=== PATIENT | male | born 1965 | race Caucasian/White ===

== ENCOUNTER 2018-11-28 02:57 | Emergency (ER) | payer MEDICAID ==
[~2018-11-28] VITALS: Ht 175.3 cm; Wt 90.7 kg
[2018-11-28 03:01] VITALS: BP_SYST 115
--- NOTE | 2018-11-28 03:11 | NUR ---
Placed in room 5 . Placed on principal java software engineer, blood pressure machine and pulse oximeter. To gown for exam. Side rails up. Report given to TORIBIO FUCHS.
--- NOTE | 2018-11-28 03:11 | NUR ---
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 Pt states pain is worse with breathing. Pt non-diaphoretic and denies N/V. Pt states that he was Dx with Pneumonia 2 month ago, but has since cleared. Pt states that he has a hx of Pneumonia 8 times in his life.
[2018-11-28] MEDS ORDERED: NACL 0.9% 1,000 ML IV ONE (03:19)
[2018-11-28] MEDS ORDERED: MORPHINE 4 MG/ML INJ. SYRINGE IVP ONE ×2 (03:30→10:45)
[2018-11-28] MEDS ORDERED: ASPIRIN 81 MG TAB.CHEW PO ONE (03:30)
[2018-11-28] MEDS ORDERED: ONDANSETRON HCL 4 MG/2 ML VIAL IVP ONE (03:30)
--- NOTE | 2018-11-28 03:30 | NUR ---
Dr. Qiu at bedside to assess pt.
--- NOTE | 2018-11-28 04:00 | NUR ---
# 22 gauge angiocath placed to LHA. Use of asceptic technique. Opsite placed over site. Blood return noted. Blood for lab drawn from site. Flushed with 10 cc of normal saline. No evidence of infiltration noted. Patient tolerated well.
[2018-11-28 04:27] LABS: INR 1.1 (0.80-1.20); PROTHROMBIN TIME 11.3 SECS (9.5-12.5)
[2018-11-28 04:31] LABS: HEMATOCRIT 35.3 % (36-54); MEAN CORPUSCULAR HEMOGLOBIN 31 pg (27-31); MEAN CORPUSCULAR HGB CONC 34 % (32-36); MEAN CORPUSCULAR VOLUME 91 fL (79.0-98.0); RED CELL DISTRIBUTION WIDTH 12.8 % (9.0-15.0); WHITE BLOOD COUNT (AUTO) 11.1 K/uL (4.8-10.8)
[2018-11-28 04:32] LABS: BASOPHILS # (AUTO) 0.1 K/uL (0.0-0.2); EOSINOPHILS # (AUTO) 2.3 K/uL (0.0-0.4); EOSINOPHILS % (AUTO) 20.8 % (0.0-4.0); LYMPHOCYTES # (AUTO) 1.9 K/uL (1.0-5.5); LYMPHOCYTES % (AUTO) 16.8 % (20.5-51.5); MONOCYTES # (AUTO) 0.6 K/uL (0.0-1.0); MONOCYTES % (AUTO) 5.5 % (1.7-9.3); NEUTROPHILS # (AUTO) 6.2 K/uL (1.8-7.7); NEUTROPHILS % (AUTO) 55.9 % (40.0-70.0); PLATELET COUNT (AUTO) 75 K/uL (130-430)
[2018-11-28 05:07] LABS: CALCIUM 8.2 mg/dL (8.4-11.0); CREATININE 0.78 mg/dL (0.55-1.30); POTASSIUM 3.9 mmol/L (3.5-5.1)
[2018-11-28 05:14] LABS: ALBUMIN 2.7 g/dL (3.4-4.8); TOTAL BILIRUBIN 0.2 mg/dL (0.0-1.0)
--- NOTE | 2018-11-28 05:55 | NUR ---
Dr. Qiu at bedside to update pt on POC.
--- NOTE | 2018-11-28 06:12 | NUR ---
Spoke with Dacia, case maker with [facility] regarding pt admit. Dacia states that physician will call back.
--- NOTE | 2018-11-28 06:54 | NUR ---
Dr. Heath from [facility] on phone with Dr. Qiu.
--- NOTE | 2018-11-28 07:02 | NUR ---
Pt to be transferred to [facility]. Dr. Qiu at pt.s bedside to update on POC.
--- NOTE | 2018-11-28 07:15 | NUR ---
Pt report given to JEF Yu.
--- NOTE | 2018-11-28 07:34 | NUR ---
Patient in bed, indicates wants to get some sleep. no s/s of acute distress noted. will continue to monitor.
--- NOTE | 2018-11-28 08:09 | NUR ---
Spoke with Martha with [facility] transfer center. [facility] will be accepting, room 50. Number .
--- NOTE | 2018-11-28 10:17 | NUR ---
Called Paz Talbot at Number , and gave report to JEF Mcdaniels. patient going to room 50. Gave all information including medications given in ED, per Enedelia keep IV in do not remove. All questions answered.
--- NOTE | 2018-11-28 10:40 | NUR ---
Dr. singh at bedside to speak with patient.
[2018-11-28] MEDS ORDERED: PIPERACILLIN/TAZO 3.375 GM in NS 50 ML IV ONE (10:45)
--- NOTE | 2018-11-28 10:45 | NUR ---
new orders given for patient, transfer delay so patient can receive antibiotic for diagnosis of pneumonia.
[2018-11-28] MEDS ORDERED: PIPERACILLIN/TAZOBACTAM 3.375 GM/VIAL (ZOSYN) IV ONE (10:56)
[2018-11-28 11:30] LABS: BILIRUBIN,URINE NEGATIVE (NEGATIVE); BLOOD, URINE NEGATIVE (NEGATIVE); CLARITY/URINE SL HAZY (CLEAR); COLOR,URINE YELLOW (YELLOW); GLUCOSE,URINE NEGATIVE (NEGATIVE); KETONES,URINE NEGATIVE (NEGATIVE); LEUKOCYTE ESTERASE ,URINE NEGATIVE (NEGATIVE); NITRITE, URINE NEGATIVE (NEGATIVE); PH,URINE 6.5 (5.0-8.0); PROTEIN URINE NEGATIVE (NEGATIVE); UROBILINOGEN,URINE 0.2 (0.2-1.0)
--- NOTE | 2018-11-28 11:48 | NUR ---
Called [facility] to speak with JEF Mcdaniels to give update on patient having pneumonia and receiving Zosyn. JEF Mcdaniels acknowledged and verbalized understanding.
[2018-11-28 12:30] VITALS: BP_SYST 111
--- NOTE | 2018-11-28 12:30 | NUR ---
Patient to be transferred to [facility]. Is being transferred due to higher level of care. Receiving facility has accepting physician and available space. ER physician has signed transfer form. Patient or responsible libertarian has agreed to transfer and signed form. Patient belongings inventoried and will be sent with patient. Copy of nursing notes, lab reports, EKG, Physicians Orders and X-rays to be sent with patient. Report called to Enedelia at receiving facility. ETA is now.
== END 2018-11-28 12:30 | disposition short-term general hospital (02) ==
LOC: SED 02:57
DX: R07.89 Other chest pain (principal); R06.02 Shortness of breath; D69.6 Thrombocytopenia, unspecified; J45.909 Unspecified asthma, uncomplicated; Z90.89 Acquired absence of other organs; Z87.891 Personal history of nicotine dependence
CPT/HCPCS: 36415; 71045; 80053; 81003; 82150; 82550; 83605; 83690; 83880; 84484; 85025; 85379; 85610; 85730; 87040; 93005; 96365; 96375; 96376; 99285; J2270; J2405; J2543; J7030

== ENCOUNTER 2020-04-07 00:50 | Emergency (ER) | payer MEDICAID ==
[~2020-04-07] VITALS: Ht 172.7 cm; Wt 90.7 kg
[2020-04-07 00:52] VITALS: BP_SYST 152
--- NOTE | 2020-04-07 00:53 | NUR ---
Patient came from home. C/O Short of breath x today. Patient states " had shortness of breath and right chest pain x 3 hours ago." Hx Asthma and COPD. A/O,X4, shortness of breath , oxygen sat 97 % RA, right chest pain, place patient on rn cardiac rehab.
--- NOTE | 2020-04-07 00:53 | NUR ---
Patient to ER bed 1 to gown for evaluation. Side rails up.
--- NOTE | 2020-04-07 00:53 | NUR ---
ER at bedside examining patient.
[2020-04-07] MEDS ORDERED: ASPIRIN 81 MG TAB.CHEW PO ONE (01:15)
--- NOTE | 2020-04-07 01:33 | NUR ---
Blood for labwork drawn from furniture sales consultant. Patient tolerated well.
[2020-04-07 01:59] LABS: BASOPHILS # (AUTO) 0.1 K/uL (0.0-0.2); BASOPHILS % (AUTO) 0.6 % (0.0-2.0); EOSINOPHILS # (AUTO) 0.7 K/uL (0.0-0.4); EOSINOPHILS % (AUTO) 5.8 % (0.0-4.0); HEMOGLOBIN 11.8 g/dL (14.0-18.0); LYMPHOCYTES # (AUTO) 1.4 K/uL (1.0-5.5); LYMPHOCYTES % (AUTO) 10.9 % (20.5-51.5); MEAN CORPUSCULAR HEMOGLOBIN 31 pg (27-31); MEAN CORPUSCULAR HGB CONC 34 % (32-36); MEAN CORPUSCULAR VOLUME 91 fL (79.0-98.0); MONOCYTES # (AUTO) 0.9 K/uL (0.0-1.0); MONOCYTES % (AUTO) 7.2 % (1.7-9.3); NEUTROPHILS # (AUTO) 9.5 K/uL (1.8-7.7); NEUTROPHILS % (AUTO) 75.5 % (40.0-70.0); PLATELET COUNT (AUTO) 390 K/uL (130-430); RED BLOOD CELL COUNT(AUTO) 3.84 MIL/uL (4.2-6.2); RED CELL DISTRIBUTION WIDTH 12.9 % (9.0-15.0); WHITE BLOOD COUNT (AUTO) 12.6 K/uL (4.8-10.8)
--- NOTE | 2020-04-07 02:09 | NUR ---
Patient states "need med for pain, pain rate 06/14." , notified.
[2020-04-07 02:10] LABS: CREATININE 1.93 mg/dL (0.55-1.30); POTASSIUM 3.7 mmol/L (3.5-5.1)
[2020-04-07 02:12] LABS: INR 1.3 (0.80-1.20); PROTHROMBIN TIME 12.6 SECS (9.5-12.5)
[2020-04-07] MEDS ORDERED: KETOROLAC TROMETHAMINE 60 MG/2 ML VIAL IM ONE (02:15)
[2020-04-07] MEDS ORDERED: KETOROLAC TROMETHAMINE 30 MG VIAL IM ONE (02:15)
[2020-04-07 02:18] LABS: ALBUMIN 3.3 g/dL (3.4-4.8); TOTAL BILIRUBIN 0.3 mg/dL (0.0-1.0)
[2020-04-07] MEDS ORDERED: ALBMDI INH (03:36)
[2020-04-07] MEDS ORDERED: FLO44 INH (03:36)
[2020-04-07] MEDS ORDERED: LOSA50TA28 PO (03:36)
[2020-04-07] MEDS ORDERED: OMEP40CA33 PO (03:36)
--- NOTE | 2020-04-07 03:37 | NUR ---
Medication reconciliation completed with information provided by patient. Any prior medication reconciliation on file was reviewed and corrected.
--- NOTE | 2020-04-07 03:40 | NUR ---
# 24 gauge angiocath placed to left wrist by JEF Salas. Use of asceptic technique. Opsite placed over site. Blood return noted. Blood for lab drawn from site. Flushed with 10 cc of normal saline. No evidence of infiltration noted. Patient tolerated well.
[2020-04-07 05:14] LABS: BILIRUBIN,URINE NEGATIVE (NEGATIVE); BLOOD, URINE NEGATIVE (NEGATIVE); CLARITY/URINE CLEAR (CLEAR); COLOR,URINE YELLOW (YELLOW); GLUCOSE,URINE NEGATIVE (NEGATIVE); KETONES,URINE NEGATIVE (NEGATIVE); LEUKOCYTE ESTERASE ,URINE NEGATIVE (NEGATIVE); NITRITE, URINE NEGATIVE (NEGATIVE); PH,URINE 5.5 (5.0-8.0); PROTEIN URINE TRACE (NEGATIVE); UROBILINOGEN,URINE 0.2 (0.2-1.0)
[2020-04-07 05:30] LABS: URINE SULFO SALICYLIC ACID TRACE (NEGATIVE)
--- NOTE | 2020-04-07 06:19 | NUR ---
TRANSFER INFO [place] ROOM: 321B ACCEPTING: DR. SANDERS REPORT: [phone] [facility] ETA 0720 SPOKE TO ABBIE
[2020-04-07 06:44] VITALS: BP_SYST 129
--- NOTE | 2020-04-07 06:44 | NUR ---
Patient does not wish to proceed with medical care recommended by . Patient given information related to possible complications, up to and including , which could occur as a result of leaving hospital at this time. Patient verbalizes understanding of risks involved leaving against medical advice. Patient has signed AMA form.
--- NOTE | 2020-04-07 06:44 | NUR ---
Patient signed AMA.
== END 2020-04-07 06:44 | disposition left against medical advice (07) ==
LOC: SED 00:50
DX: A06 Amebiasis (principal); A31.9 Mycobacterial infection, unspecified; R91.8 Other nonspecific abnormal finding of lung field; J45.909 Unspecified asthma, uncomplicated; Z79.899 Other long term (current) drug therapy
CPT/HCPCS: 36415; 71045; 71250; 80053; 81003; 82550; 83880; 84484; 85025; 85379; 85610; 93005; 96372; 99285; J1885

== ENCOUNTER 2021-01-31 12:33 | Emergency (ER) | payer MEDICAID, SELFPAY ==
[~2021-01-31] VITALS: Ht 175.3 cm; Wt 90.7 kg
[2021-01-31 12:33] VITALS: BP_SYST 142
[~2021-01-31 12:33] MED LIST: ALBMDI INH; FLO44 INH; LOSA50TA28 PO; OMEP40CA13 PO
--- NOTE | 2021-01-31 12:34 | NUR ---
BROUGHT IMMEDIATELY BACK TO BED #7 AND TRIAGED. REPORT GIVEN TO WILLIAM
--- NOTE | 2021-01-31 12:48 | NUR ---
ER at bedside examining patient.
--- NOTE | 2021-01-31 13:00 | NUR ---
pt arrives from home w/ c/o blood in the sputum. Pt reports being dx w/ pna 2 weeks ago and is currently taking a a-pack. Pt also reports feeling SOB. O2 upon arrival was 92%. O2 l placed via NC. property assessment monitor placed.
[2021-01-31 13:27] LABS: BASOPHILS # (AUTO) 0.2 K/uL (0.0-0.2); BASOPHILS % (AUTO) 1.5 % (0.0-2.0); EOSINOPHILS # (AUTO) 3.2 K/uL (0.0-0.4); EOSINOPHILS % (AUTO) 28.2 % (0.0-4.0); HEMATOCRIT 40.5 % (36-54); HEMOGLOBIN 13.7 g/dL (14.0-18.0); LYMPHOCYTES # (AUTO) 1.7 K/uL (1.0-5.5); LYMPHOCYTES % (AUTO) 14.8 % (20.5-51.5); MEAN CORPUSCULAR HEMOGLOBIN 31 pg (27-31); MEAN CORPUSCULAR HGB CONC 34 % (32-36); MEAN CORPUSCULAR VOLUME 90 fL (79.0-98.0); MONOCYTES # (AUTO) 0.6 K/uL (0.0-1.0); NEUTROPHILS # (AUTO) 5.8 K/uL (1.8-7.7); NEUTROPHILS % (AUTO) 50.5 % (40.0-70.0); PLATELET COUNT (AUTO) 300 K/uL (130-430); RED BLOOD CELL COUNT(AUTO) 4.48 MIL/uL (4.2-6.2); RED CELL DISTRIBUTION WIDTH 12.8 % (9.0-15.0); WHITE BLOOD COUNT (AUTO) 11.5 K/uL (4.8-10.8)
[2021-01-31 13:37] LABS: CALCIUM 8.9 mg/dL (8.4-11.0); CREATININE 0.95 mg/dL (0.55-1.30); POTASSIUM 4.2 mmol/L (3.5-5.1)
[2021-01-31 13:42] LABS: ALBUMIN 3.4 g/dL (3.4-4.8); TOTAL BILIRUBIN 0.3 mg/dL (0.0-1.0)
--- NOTE | 2021-01-31 13:56 | NUR ---
Notified ED Admitting, regarding pt status pending admission/ trasnfer. Per Dr. Carey, pt is stable for transfer. Will notify insurance agents supervisor.
--- NOTE | 2021-01-31 14:38 | NUR ---
# 24 gauge angiocath placed to left wrist . Use of asceptic technique. Opsite placed over site. Blood return noted. Blood for lab drawn from site. Flushed with 10 cc of normal saline. No evidence of infiltration noted. Patient tolerated well.
[2021-01-31] MEDS: cefTRIAXone 1 GM IVPB PREMIX 50 ML IV ONE (14:44)
[2021-01-31] MEDS: ALBUTEROL SULFATE 0.083% 2.5 MG/3 ML VIAL.NEB INH ONE (15:04)
--- NOTE | 2021-01-31 15:04 | NUR ---
rt at the bedside.
[2021-01-31] MEDS: IPRATROPIUM BROM 0.5 MG/2.5 ML VIAL.NEB (ATROVENT) INH ONE (15:05)
--- NOTE | 2021-01-31 16:00 | NUR ---
rapid covid swab collected and sent to the lab
--- NOTE | 2021-01-31 16:20 | NUR ---
Per Dr. Dao, page pt insurance commissioner one more time.
--- NOTE | 2021-01-31 16:27 | NUR ---
Spoke to Evi, [facility] continuous pillowcase cutter, called back regarding pt status. Reqeusted fax of facesheet and clinicals. Dr. Rizzo will call back to speak to Dr. Dao regarding pt status. fax: [phone]
--- NOTE | 2021-01-31 16:57 | NUR ---
[facility], called back to speak to Dr. Dao regarding pt status
--- NOTE | 2021-01-31 17:31 | NUR ---
Spoke to Evi, insurance sales representative, stated she will call DAVONTE Castillo to put pt on will call list. When Martha from [facility] calls to give bed placement we can call DAVONTE FOY to activate [facility] Dr. Rizzo waiting for bed placement *[address] [place] [address]* Addendum: 01/31/21 at 1740 by WINSOME Evi called back to update it will be [facility] that pt will be on will call.
--- NOTE | 2021-01-31 17:35 | NUR ---
TRANSFER NOTE [facility] Dr. Rizzo waiting for bed placement spoke to Evi
--- NOTE | 2021-01-31 19:12 | NUR ---
will endorse care to the oncoming nurse. Pt currently awaiting transfer to [facility].
--- NOTE | 2021-01-31 20:20 | NUR ---
Assumed care of patient at change of shift. Introduced self to patient and family who have been informed of transfer to [facility] room 212A. Positioned for comfort and safety w/ bed to low position sr up, continue to monitor. Patient resting quietly. No acute distress noted. Vital signs within normal range.
--- NOTE | 2021-01-31 20:50 | NUR ---
Patient to be transferred to [place]. Is being transferred due to higher level of care. Receiving facility has accepting physician and available space. ER physician has signed transfer form. Patient or responsible democrat has agreed to transfer and signed form. Patient belongings inventoried and will be sent with patient. Copy of nursing notes, lab reports, EKG, Physicians Orders and X-rays to be sent with patient. Report called to Consuelo at receiving facility. Receiving physician is Matthias. [facility] ambulance service has been called for transfer. ETA is 2200. Report called and given to Consuelo FUCHS for room 212 at [phone]
[2021-01-31 20:51] VITALS: BP_SYST 131
--- NOTE | 2021-01-31 21:20 | NUR ---
patient became upset 2nd to not receiving any pain medications (MD Dao was informed of patient pain to "my lung" upon initial assessment but no order was placed) Patient was also c/o that the room became hot, fan offered to patient (door closed 2nd to patient currently in respiratory isolation 2nd to coughing up blood." patient no longer wanted my services and had become verbally volitile using lots of curse words towards myself. charge nurse informed, for my safety that another nurse should be caring for patient. Charge nurse at bedside to explain to patient that ambulance is on it's way to transfer patient to [place]. patient had called his and wants to leave.
[2021-01-31] MEDS ORDERED: MORPHINE 2 MG/ML INJ. SYRINGE IVP ONE (21:45)
[2021-01-31] MEDS ORDERED: DIPHENHYDRAMINE INJ 50 MG/ML VIAL IVP ONE (21:45)
--- NOTE | 2021-01-31 21:50 | NUR ---
patient eloped, had iv h.l. Piping Blocker's notified
== END 2021-01-31 21:30 | disposition left against medical advice (07) ==
LOC: SED 12:33
DX: R04.2 Hemoptysis (principal); R09.02 Hypoxemia; J85.2 Abscess of lung without pneumonia; I10 Essential (primary) hypertension; J45.909 Unspecified asthma, uncomplicated; Z79.899 Other long term (current) drug therapy; Z20.822 Contact with and (suspected) exposure to COVID-19
CPT/HCPCS: 36415; 71045; 71250; 76376; 80053; 82550; 83880; 84484; 85025; 87040; 87426; 93005; 94640; 96365; 99285; J0696; J7613